=== PATIENT | female | born 1990 | race Caucasian/White ===

== ENCOUNTER 2018-11-28 16:54 | Emergency (ER) | payer BC ==
[2018-11-28 17:27] VITALS: BP 144/65
--- NOTE | 2018-11-28 17:34 | UC ---
Throat Pain/Nasal Rickey HPI - HPI Summary HPI Summary: 28 year old female with no PMH current yeast infection treated with diflucan with c/o sore throat x 24 hours with swollen tnsils this AM. no other symptoms , no fever, chills. - History of Current Complaint Chief Complaint: UCRespiratory Stated Complaint: THROAT PAIN Time Seen by Provider: 11/28/18 17:28 Hx Obtained From: Patient Hx Last Menstrual Period: 11/19/18 ?: No Onset/Duration: Sudden Onset, Lasting Days Severity: Moderate Pain Intensity: 2 Pain Scale Used: 0-10 Numeric - Allergies/Home Medications Allergies/Adverse Reactions: Allergies Allergy/AdvReac Type Severity Reaction Status Date / Time phenylephrine Allergy Severe Anxiety Verified 11/28/18 17:28 pseudoephedrine Allergy Intermediate See Comment Verified 11/28/18 17:28 ciprofloxacin Allergy Mild Nausea Verified 11/28/18 17:28 Estrogens Allergy Mild Anxiety Verified 11/28/18 17:28 lactose Allergy Mild See Comment Verified 11/28/18 17:28 acetaminophen Allergy See Comment Verified 11/28/18 17:28 amoxicillin Allergy GI Upset Verified 11/28/18 17:28 clavulanic acid Allergy GI Upset Verified 11/28/18 17:28 Tramadol Allergy See Comment Uncoded 10/04/15 17:17 Home Medications: Home Medications Fluconazole 100 MG TAB* [Diflucan 100 MG TAB*] 100 mg PO DAILY 11/28/18 [ History Confirmed 11/28/18] Norethindrone 0.35 mg PO DAILY 11/28/18 [History Confirmed 11/28/18] PMH/Surg Hx/FS Hx/Imm Hx Previously Healthy: Yes - Surgical History Surgical History: Yes Surgery Procedure, Year, and Place: umbilical hernia repair 08/2015. Appendectomy 04/01 [facility] [place]. Laproscopic endometrial surgery 12/2104. 05/2016 laproscopy - Family History Known Family History: Positive: None - Social History Alcohol Use: Rare Substance Use Type: None Smoking Status (MU): Never Smoked Tobacco Have You Smoked in the Last Year: No - Immunization History Most Recent Influenza Vaccination: 08/2015 Most Recent Tetanus Shot: up to date Most Recent Pneumonia Vaccination: none Review of Systems All Other Systems Reviewed And Are Negative: Yes ENT: Positive: Sore Throat Is Patient Immunocompromised?: No Physical Exam Triage Information Reviewed: Yes Appearance: Well-Appearing, No Pain Distress, Well-Nourished Vital Signs: Initial Vital Signs Temp 98.3 F 11/28/18 17:22 Pulse 84 11/28/18 17:22 Resp 12 11/28/18 17:22 BP 144/65 11/28/18 17:22 Pulse Ox 100 11/28/18 17:22 Vital Signs Reviewed: Yes Eyes: Positive: Conjunctiva Clear ENT: Positive: Pharyngeal erythema - red, beefy, TMs normal, Tonsillar swelling - mderate, Tonsillar exudate - b/l, Uvula midline. Negative: TM bulging, TM dull, TM red, Sinus tenderness Neck: Positive: Supple, Nontender, Enlarged Nodes @ - submand b/l. Negative: Nuchal Rigidity Neurological Exam: Normal Psychological Exam: Normal Skin Exam: Normal Skin: Negative: Rashes Throat Pain/Nasal Course/Dx - Course Course Of Treatment: rapid strep negative, likely viral, continue conservative treatment - Differential Dx/Diagnosis Differential Diagnosis/HQI/PQRI: Peritonsillar Abscess, Pharyngitis Provider Diagnosis: Pharyngitis Discharge - Sign-Out/Discharge Documenting (check all that apply): Patient Departure All imaging exams completed and their final reports reviewed: No Studies - Discharge Plan Condition: Good Disposition: HOME Prescriptions: Benzonatate CAP* [Tessalon 100 MG CAP*] 100 mg PO TID PRN #30 cap PRN Reason: sore throat Patient Education Materials: Pharyngitis (ED) Referrals: Barbie Moralez MD [Primary Care Provider] - Additional Instructions: - Increase fluid intake - Tylenol/ Motrin as needed for pain - Humidifer at night to help with cough, symptoms - Follow up with primary physician for re-evaluation within 5-7 days - Go to ER with shortness of breath, decreased swallowing, difficulty breathing , fever > 102 not brought down by medications - Billing Disposition and Condition Condition: GOOD Disposition: Home
== END 2018-11-28 18:46 | disposition home or self-care (01) ==
LOC: UCEAST 16:54
DX: J02.9 Acute pharyngitis, unspecified (principal); Z88.5 Allergy status to narcotic agent; Z88.0 Allergy status to penicillin; Z88.8 Allergy status to other drugs, medicaments and biological substances; Z88.1 Allergy status to other antibiotic agents; Z91.011 Allergy to milk products
CPT/HCPCS: 87651; 99212; G0463

== ENCOUNTER 2023-03-02 13:55 | Inpatient (IN) ==
[2023-03-02] MEDS ORDERED: Penicillin G Potassium IV 5,000,000 UNITS in NS 0.9% 100 ml BAG 100 ML IVPB ONE (14:21)
[2023-03-02] MEDS ORDERED: Lactated Ringers 1000 ml BAG 1,000 ML IV ONE ×2 (14:21→16:16)
[2023-03-02] MEDS ORDERED: Promethazine INJ(RESTRICTED) 25 MG/ML 1 ml VIAL IV PRN (14:21)
[2023-03-02] MEDS ORDERED: Buffered Lidocaine 1% SYRIN 1 ml INTRADERM ONE (14:21)
[2023-03-02] MEDS ORDERED: Lactated Ringers 1000 ml BAG 1,000 ML IV SCH ×3 (15:00→21:00)
[2023-03-02 15:02] LABS: ABS Basophils 0.1 10^3/uL (0.0-0.1); ABS Lymphocytes 1.3 10^3/uL (1.0-4.8); ABS Monocytes 0.8 10^3/uL (0.0-0.9); ABS Neutrophils 10.1 10^3/uL (1.5-7.6); ABS Nucleated RBC 0.01 10^3/ul; Eosinophil % 0.1 %; Hematocrit 34.6 % (35-45); Hemoglobin 11.8 g/dL (11.5-14.3); Mean Corpuscular Hemoglobin 28.3 pg (27-33); Mean Corpuscular Hgb Conc 34.2 g/dL (31-36); Mean Corpuscular Volume 82.7 fL (80-97); Nucleated Red Blood Cells % 0.1 /100 WBC (0.0-0.4); Platelet Count 199 10^3/uL (150-450); Red Blood Count 4.18 10^6/uL (3.63-4.92); Red Cell Distribution Width 16.3 % (12-17); White Blood Count 12.3 10^3/uL (3.8-11.8)
[2023-03-02] MEDS ORDERED: OBEPIDURAL (200 ML) 200 ML EPIDURAL ONE (15:19)
[2023-03-02] MEDS ORDERED: Lidocaine 1% w EPI 1:200,000 SDV 30 ML VIAL ONE (15:19)
[2023-03-02 15:30] LABS: Urine Benzodiazepine Screen None Detected (None Detect); Urine Opiates Screen None Detected (None Detect)
[2023-03-02] MEDS ORDERED: Sodium Citrate/Citric Acid LIQ 15 ML UDC PO PRN (16:16)
[2023-03-02] MEDS ORDERED: Phenylephrine 40 mcg/mL 10mL (400mcg) SYRINGE IV PUSH PRN ×2 (16:16)
[2023-03-02 16:48] LABS: Urine Appearance Cloudy; Urine Bilirubin Negative (Negative); Urine Blood Negative (Negative); Urine Color Yellow; Urine Glucose Negative (Negative); Urine Ketones Negative (Negative); Urine Nitrite Negative (Negative); Urine Protein Negative (Negative); Urine Specific Gravity 1.023 (1.002-1.030); Urine Urobilinogen Negative (Negative)
[2023-03-02] MEDS ORDERED: OBEPIDURAL (200 ML) 200 ML EPIDURAL SCH (17:00)
[2023-03-02] MEDS ORDERED: Ondansetron 4 mg VIAL 2 MG/ML 2 ml VIAL IV PRN (19:05)
[2023-03-02] MEDS ORDERED: Penicillin G Potassium IV 3,000,000 UNITS in NS 0.9% 100 ml BAG 100 ML IVPB SCH (19:30)
[2023-03-02] MEDS ORDERED: Witch Hazel PAD JAR TOPICAL PRN (20:47)
[2023-03-02] MEDS ORDERED: Glycerin ADULT 2.4 gm SUPP PR PRN (20:47)
[2023-03-03] MEDS ORDERED: RHO D Immune Globulin (HUMAN) 300 MCG = 1,500 I.U. INJ IM ONE (00:24)
[2023-03-03 07:12] LABS: ABS Basophils 0.1 10^3/uL (0.0-0.1); ABS Lymphocytes 1.8 10^3/uL (1.0-4.8); ABS Monocytes 0.7 10^3/uL (0.0-0.9); ABS Neutrophils 11.9 10^3/uL (1.5-7.6); ABS Nucleated RBC 0.01 10^3/ul; Eosinophil % 0.2 %; Hematocrit 29.4 % (35-45); Hemoglobin 9.9 g/dL (11.5-14.3); Lymphocyte % 12.2 %; Mean Corpuscular Hemoglobin 28.4 pg (27-33); Mean Corpuscular Hgb Conc 33.7 g/dL (31-36); Mean Corpuscular Volume 84.4 fL (80-97); Mean Platelet Volume 8.9 fL (7.5-11.2); Platelet Count 152 10^3/uL (150-450); Red Blood Count 3.49 10^6/uL (3.63-4.92); Red Cell Distribution Width 16.3 % (12-17); White Blood Count 14.4 10^3/uL (3.8-11.8)
[2023-03-03] MEDS: Dibucaine 1% OINT 28.35 GM TUBE PR PRN (09:19)
[2023-03-04] MEDS ORDERED: RHO D Immune Globulin (HUMAN) 300 MCG = 1,500 I.U. INJ IM ONE (12:00)
[2023-03-04 15:39] VITALS: BP 138/78
[2023-03-04] MEDS: Dibucaine 1% OINT 28.35 GM TUBE PR PRN (15:47)
== END 2023-03-04 18:27 | disposition home or self-care (01) | DRG 560 ==
LOC: MCHOBOUT 13:55 → MCHOB 14:21
PROVIDERS: ADMIT Registered Nurse; ATTEND Registered Nurse